=== PATIENT | female | born 1995 | race Two or more races ===

== ENCOUNTER 2017-04-17 06:05 | Inpatient (IN) | payer MEDICAID ==
[~2017-04-17] VITALS: Ht 154.9 cm; Wt 68.2 kg
[2017-04-17 06:29] VITALS: Ht 154.9 cm; Wt 68.2 kg
[2017-04-17 06:31] VITALS: BP 119/63; RESP 18
[2017-04-17] MEDS ORDERED: PRENAT PO (06:34)
[2017-04-17 07:17] LABS: ADD UMIC YES; URINE BILIRUBIN (Dip) NEGATIVE (NEGATIVE); URINE BLOOD (Dip) NEGATIVE (NEGATIVE); URINE COLOR LT. YELLOW (YELLOW); URINE GLUCOSE (Dip) NEGATIVE (NEGATIVE); URINE KETONES (Dip) NEGATIVE (NEGATIVE); URINE LEUKOCYTE ESTERASE (Dip) 1+ (NEGATIVE); URINE NITRITE (Dip) NEGATIVE (NEGATIVE); URINE TOTAL PROTEIN (Dip) NEGATIVE (NEGATIVE); URINE UROBILINOGEN (Dip) 0.2 E.U./dL (0.1-1.0)
[2017-04-17] MEDS: LACTATED RINGER'S 1,000 ML IV SCH ×4 (07:31→15:36)
--- NOTE | 2017-04-17 07:48 | RADRPT ---
PROCEDURE: OB ultrasound for biophysical profile CLINICAL INDICATION: Contractions TECHNIQUE: Multiple sonographic images of the pelvis were obtained. Transabdominal views of the g ravid uterus are available for review. The images were reviewed on a PACS workstation. COMPARISON: None FINDINGS: breathing movement = 2/2 tone = 2/2 motion = 2/2 GERALD = 0/2 GERALD = 4.4 cm Single live intrauterine with cardiac activity of 159 bpm. position is cephal ic. The placenta is fundal. IMPRESSION: 1. Single live intrauterine gestation. 2. Biophysical profile = 04/30. GERALD = 0/2 3. Oligohydramnios. GERALD = 4.4 cm. RPTAT: HH .Ana Cardozo MD, Date Time Electronically viewed and signed by .Ana Cardozo MD, on 04/17/2017 07:48 .G/
[2017-04-17 08:03] LABS: BACTERIA,URINE RARE; URINE RBCS NONE SEEN /HPF (0)
--- NOTE | 2017-04-17 08:31 | HP ---
Date/Time of Note Date/Time of Note DATE: 04/17/17 TIME: 08:30 OB - History Hx of Present Free Text/Dictation @38+wks GA with GERALD 4.4 and labor : 2 Para: 1 Care: Good Care Ultrasounds: Normal mid trimester US Obstetrical Complications: None Medical Complications: None Past Family/Social History * Past Medical, Surgical, Family and Obstetric Histories reviewed from chart. OB Admission Exam Vital Signs Vital Signs Vital Signs Date Time Temp Pulse Resp B/P Pulse Ox O2 Delivery O2 Flow Rate FiO2 04/17/17 06:31 98.5 18 119/63 Room Air Physical Exam Abdomen: WNL Extremities: Normal Cervical Dilatation: 2cm Effacement: 75% Station: -1 Membranes: Intact Heart Rate: 140's Accelerations: Accelerations Present Decelerations: No Decelerations Varibility: Moderate Contractions on Admission: < 5 Minutes Apart OB Assessment/Plan Reason for admission: observation Plan: Expectant Management PO CORTEZ M.D. April 17, 2017 08:31
--- NOTE | 2017-04-17 09:02 | TRIAGE ---
OB Triage Datetime Report Generated by CPN: 04/17/2017 09:02 Datetime: 04/17/2017 08:56 Pain Assessment Comments: PT REPORTS INCREASED PAIN Datetime: 04/17/2017 08:53 Labor Evaluation Frequency: 2-3 Duration (sec)2399: 60-120 Quality: Strong Pattern: Normal: <= 5 Contractions in 10 Minutes Resting Tone Keller: Relaxed Heart Rate FHR Baseline Rate: 145 Monitor Mode: External US Variability: Moderate 6-25 bpm Accelerations: 15X15 Decelerations: None Category: Category I Pain Assessment Pain Scale: 8 Pain Presence: Intermittent Pain Type: Contraction Pain Location: Abdomen; Back Pain Goal: 2 Datetime: 04/17/2017 07:50 Labor Evaluation Frequency: 3-5 Monitor Mode: External Duration (sec)2399: 60-80 Quality: Moderate Pattern: Normal: <= 5 Contractions in 10 Minutes Resting Tone Keller: Relaxed Heart Rate FHR Baseline Rate: 155 Monitor Mode: External US Variability: Moderate 6-25 bpm Accelerations: 15X15 Decelerations: None Category: Category I Datetime: 04/17/2017 07:22 Maternal Assessment Level of Consciousness: Fully Conscious DTR's/Clonus: DTRs 2+; No Clonus Headache: Denies Blurred Vision: No Respiratory Effort: Unlabored; Regular Rhythm; Equal Expansion Breath Sounds, Left: Clear and Equal Breath Sounds, Right: Clear and Equal Nausea/Vomiting: Denies RUQ Epigastric Pain: Denies Lower Extremities Edema: Bilateral Lower Extremities Degree: 1+ Upper Extremities Edema: None Degree: None Facial Edema: None Fall Risk Assessment History of Falling: (0) No Secondary Diagnosis: (0) No Ambulatory Aid: (0) Bedrest/Nurse Assist Gait: (0) Normal/Bedrest/Immobile Mental Status: (0) Oriented to Own Ability Datetime: 04/17/2017 07:00 Labor Evaluation Frequency: 4-5 Monitor Mode: External Duration (sec)2399: 60-90 Quality: Moderate Pattern: Normal: <= 5 Contractions in 10 Minutes Resting Tone Keller: Relaxed Heart Rate FHR Baseline Rate: 145 Monitor Mode: External US FHR Baseline Changes: No Baseline Change Variability: Minimal - Undetectable to <=5 bpm Accelerations: 15X15 Decelerations: None Category: Category II Comments: MINIMAL VARIABILITY WITH PERIODS OF MODERATE VARIABILITY AND ACCELERATIONS Datetime: 04/17/2017 06:25 EGA: 38.2 Vaginal Exam Dilatation (cms): 0.0 Effacement (%): 0 Station: -3 Exam By: Jose RN Datetime: 04/17/2017 06:20 Assessment Type: Triage Maternal Assessment Level of Consciousness: Fully Conscious DTR's/Clonus: DTRs 2+; No Clonus Headache: Denies Blurred Vision: No Respiratory Effort: Unlabored; Regular Rhythm; Equal Expansion Breath Sounds, Left: Clear and Equal Breath Sounds, Right: Clear and Equal Nausea/Vomiting: Denies RUQ Epigastric Pain: Denies Lower Extremities Edema: None Degree: None Upper Extremities Edema: None Degree: None Facial Edema: None Temperature Route: Oral Fall Risk Assessment History of Falling: (0) No Secondary Diagnosis: (0) No Ambulatory Aid: (0) Bedrest/Nurse Assist IV Therapy: (0) No Gait: (0) Normal/Bedrest/Immobile Mental Status: (0) Oriented to Own Ability Fall Score: 0 Fall Risk Score Definition: No Risk: No action required Pain Assessment Pain Scale: 8 Pain Presence: Intermittent Pain Type: Contraction Pain Location: Abdomen Pain Relief Measures: Comfort Measures Datetime: 04/17/2017 06:04 Time of Arrival: 04/17/2017 06:04 Arrived By: Wheelchair Arrived From: Emergency Dept Chief Complaint: UCs Movement: Present Contractions: Regular Contractions: Q4 Rupture of Membranes: Unsure Vaginal Bleeding: None Vaginal Discharge: Present Recent Sexual Intercouse: Denies Abdominal Trauma: Not Applicable Patient Complaints: Contractions Time Provider Notified: 04/17/2017 07:11 Provider Notified: DR. CORTEZ Initial Plan: CALL MD, EXTERNAL MONITORING, OBSERVATION, ROM+ IV HYDRATION
[2017-04-17 10:26] LABS: ADD SCAN DIFF NO
[2017-04-17 10:27] LABS: BASOPHILS % 0.3 % (0.0-2.0); EOSINOPHILS % 0.4 % (0.0-7.0); HEMOGLOBIN 13.3 g/dl (12.0-16.0); LYMPHOCYTES # 1.6 10^3/ul (0.8-2.9); LYMPHOCYTES % 21.6 % (18.0-55.0); MEAN CORPUSCULAR HEMOGLOBIN 32.3 pg (29.0-33.0); MEAN CORPUSCULAR VOLUME 92.2 fl (72.0-104.0); MEAN PLATELET VOLUME 12.1 fl (7.4-10.4); MONOCYTE # 0.5 10^3/ul (0.3-0.9); MONOCYTES % 7.1 % (0.0-13.0); NEUTROPHILS % 69.6 % (30.0-74.0); PLATELET COUNT 178 10^3/UL (140-415); RED BLOOD COUNT 4.12 10^6/ul (4.20-5.40); RED CELL DISTRIBUTION WIDTH 12.9 % (11.5-14.5); WHITE BLOOD COUNT 7.2 10^3/ul (4.8-10.8)
[2017-04-17] MEDS ORDERED: METHYLERGONOVINE 0.2 MG INJ IM PRN (10:30)
[2017-04-17] MEDS ORDERED: IBUPROFEN 600 MG TAB PO PRN (10:30)
[2017-04-17] MEDS ORDERED: BUTORPHANOL 2 MG INJ IV PRN ×2 (10:30)
[2017-04-17] MEDS ORDERED: OXYTOCIN 30 UNITS/LR 500 ML IV SCH ×2 (10:30)
[2017-04-17] MEDS ORDERED: OXYTOCIN 30 UNITS/LR 500 ML IV PRN (10:30)
[2017-04-17] MEDS ORDERED: ACETAMINOPHEN/CODEINE #3 TAB PO PRN ×3 (10:30→21:00)
[2017-04-17] MEDS ORDERED: LIDOCAINE 1% (MPF) 30 ML INJ INJ PRN (10:30)
[2017-04-17] MEDS ORDERED: CARBOPROST 250 MCG INJ IM PRN (10:30)
[2017-04-17] MEDS ORDERED: DINOPROSTONE 10 MG VAG SUPP VAG ONE (10:30)
[2017-04-17] MEDS ORDERED: MISOPROSTOL 200 MCG TAB PR PRN (10:30)
[2017-04-17 10:43] LABS: INR 0.93; PROTIME 12.5 Sec (12.2-14.2)
[2017-04-17 10:44] LABS: PARTIAL THROMBOPLASTIN TIME 24.4 Sec (25.0-35.0)
[2017-04-17] MEDS ORDERED: LACTATED RINGER'S 1,000 ML IV PRN (11:10)
[2017-04-17] MEDS ORDERED: FENTAnyl 2MCG/ML-ROPIV 0.2% 100 ML ONE (12:44)
[2017-04-17] MEDS ORDERED: NALOXONE (0.4 MG/ML) INJ IV PRN (13:00)
[2017-04-17] MEDS ORDERED: FENTAnyl 2MCG/ML-ROPIV 0.2% 100 ML BAG EPI SCH (13:00)
--- NOTE | 2017-04-17 18:04 | LDN ---
Date/Time of Note Date/Time of Note DATE: 04/17/17 TIME: 18:01 Delivery Summary Normal spontaneous vaginal delivery of a baby boy from OA position shoulders delivered without any difficulties rest of the baby's body followed placenta spontaneous expulsion inspected complete patient sustained very superficial first-degree perineal laceration repaired with 4-0 chromic catgut estimated blood loss 250 cc Weeks of Gestation 39 weeks 4 7 Placenta Delivered: Spontaneously Meconium: none Episiotomy: No Laceration repair: Superficial first-degree perineal laceration repaired with 4-0 chromic catgut Anesthesia type: Epidural Sponge & Needle done & correct: Yes All needle counts correct: Yes Any foreign bodies felt in the: No Problems: Delivery Information Sex Infant Sex: male Apgars 1 Minute: 9 5 Minute: 9 Suctioning Nose & mouth suctioned at devonte: Yes Delee suction performed: No Umbilical Cord Umbilical cord with: 3 Vessels Cord presentations: no nuchal cord Cord Blood was obtained: Yes NIKKI VILLARREAL MD April 17, 2017 18:04
[2017-04-17] MEDS: OXYTOCIN 30 UNITS/LR 500 ML IV SCH ×2 (20:45→22:17)
[2017-04-17 20:50] VITALS: BP 121/59; PULSE 86; RESP 18
[2017-04-17] MEDS ORDERED: ACETAMINOPHEN 325 MG TAB PO PRN (21:00)
[2017-04-17] MEDS ORDERED: BENZOCAINE 20% 56 ML SPRAY TOP PRN (21:00)
[2017-04-17] MEDS ORDERED: LANOLIN 7 GM TUBE TOP PRN (21:00)
[2017-04-17] MEDS ORDERED: WITCH HAZEL/GLYCERIN PAD PR PRN (21:00)
[2017-04-17] MEDS ORDERED: OXYCODONE/ASPIRIN (4.88/325) TAB PO PRN ×2 (21:00)
[2017-04-17] MEDS ORDERED: DIBUCAINE 1% 30 GM OINT PR PRN (21:00)
[2017-04-17] MEDS ORDERED: ONDANSETRON 4 MG INJ IV PRN (21:00)
[2017-04-17 21:30] VITALS: BP 110/58; PULSE 91; RESP 18
[2017-04-17] MEDS: SENNA/DOCUSATE NA (8.6MG/50MG) TAB PO SCH (21:38)
[2017-04-18 03:43] VITALS: BP 102/54; PULSE 93; RESP 18
[2017-04-18] MEDS: IBUPROFEN 600 MG TAB PO SCH ×5 (05:41→23:14)
[2017-04-18 07:29] LABS: ADD SCAN DIFF NO
[2017-04-18 07:35] VITALS: BP 119/56; PULSE 98; RESP 17
[2017-04-18 07:35] LABS: BASOPHILS % 0.5 % (0.0-2.0); EOSINOPHILS # 0.1 10^3/ul (0.0-0.5); EOSINOPHILS % 0.6 % (0.0-7.0); HEMOGLOBIN 13.4 g/dl (12.0-16.0); LYMPHOCYTES # 1.9 10^3/ul (0.8-2.9); LYMPHOCYTES % 20.9 % (18.0-55.0); MEAN CORPUSCULAR HEMOGLOBIN 32.2 pg (29.0-33.0); MEAN CORPUSCULAR HGB CONC 34.4 g/dl (32.0-37.0); MEAN CORPUSCULAR VOLUME 93.8 fl (72.0-104.0); MEAN PLATELET VOLUME 11.4 fl (7.4-10.4); MONOCYTE # 0.6 10^3/ul (0.3-0.9); MONOCYTES % 6.7 % (0.0-13.0); NEUTROPHIL # 6.3 10^3/ul (1.6-7.5); NEUTROPHILS % 70.7 % (30.0-74.0); PLATELET COUNT 170 10^3/UL (140-415); RED BLOOD COUNT 4.16 10^6/ul (4.20-5.40); RED CELL DISTRIBUTION WIDTH 12.9 % (11.5-14.5); WHITE BLOOD COUNT 8.9 10^3/ul (4.8-10.8)
[2017-04-18] MEDS: SENNA/DOCUSATE NA (8.6MG/50MG) TAB PO SCH ×2 (09:39→21:31)
[2017-04-18 12:20] VITALS: BP 105/59; PULSE 90; RESP 19
--- NOTE | 2017-04-18 15:36 | PN ---
Date/Time of Note Date/Time of Note DATE: 04/18/17 TIME: 15:35 OB Subjective Subjective Subjective day 1 Afebrile vital signs stable abdomen soft uterus firm lochia normal extremity normal ambulation encouraged NIKKI VILLARREAL MD April 18, 2017 15:36
[2017-04-18 15:54] VITALS: BP 95/48; PULSE 91; RESP 16
[2017-04-18 20:00] VITALS: BP 111/60; PULSE 72; RESP 20
[2017-04-19 03:15] VITALS: BP 109/59; PULSE 72; RESP 20
[2017-04-19] MEDS: IBUPROFEN 600 MG TAB PO SCH ×2 (05:20→12:40)
[2017-04-19 07:45] VITALS: BP 113/65; PULSE 97; RESP 16
[2017-04-19] MEDS: SENNA/DOCUSATE NA (8.6MG/50MG) TAB PO SCH (08:44)
[2017-04-19] MEDS ORDERED: MEASLES,MUMPS,RUBELLA VACCINE INJ SC* ONE (09:00)
--- NOTE | 2017-04-19 16:14 | PD.PPDC ---
[facility] Discharge Instruction Condition Patient Condition: Good Diet Diet: Resume Regular Diet Activity/Restrictions Activity: Normal Activity May Shower Restrictions: No Exercising No Lifting No Driving No Sexual Activity Nothing in the Vagina No [place] No Tampons, douche Follow-up Follow-up with Physician: 2, Week/Weeks Provider Information: Appointment at [facility] in 2 weeks for check Return to clinic for [facility] [employer] [facility] Instructions: Fever greater than 101 Chills Worsening abdominal pain Excessive Vaginal Bleeding More than 2 pads per hour Unable to tolerate diet OB Instructions: Breast Tenderness Depression Blurried Vision Headache NIKKI VILLARREAL MD April 19, 2017 16:14
--- NOTE | 2017-04-19 16:18 | DS ---
Date/Time of Note Date/Time of Note DATE: 04/19/17 TIME: 16:15 Discharge Summary Admission/Discharge Info Admit Date/Time April 17, 2017 at 08:35 Discharge Date/Time Apr 19 2017 at 1610 Final Diagnosis Post normal vaginal delivery day 2 Patient Condition: Good Procedures Normal spontaneous vaginal delivery Hx of Present Illness Term uncomplicated Hospital Course Satisfactory uneventful Home Meds Reported Medications Multivit/Min/Fol Ac/Iron/Pren* ( S*) 1 Tab Tab, 1 TAB PO DAILY, TAB 04/17/17 Follow-up Plan Appointment [facility] office in 2 weeks for post check Primary Care Provider Care Physician No Primary Time spent on discharge: < 30 minutes NIKKI VILLARREAL MD April 19, 2017 16:18
== END 2017-04-19 17:05 | disposition home or self-care (01) | DRG 775 ==
LOC: L-D 06:05 → OBT 06:05 → L-D 08:35 → PP1 20:47
PROVIDERS: ADMIT Obstetrics & Gynecology; ATTEND Obstetrics & Gynecology
PROC: 10E0XZZ Delivery of Products of Conception, External Approach (ICD-10-PCS; principal; 2017-04-17)
PROC: 0HQ9XZZ Repair Perineum Skin, External Approach (ICD-10-PCS; 2017-04-17)
DX: O70.0 First degree perineal laceration during delivery (principal); Z37.0 Single live birth; Z3A.38 38 weeks gestation of pregnancy
CPT/HCPCS: 36415; 62319; 76818; 81001; 84112; 85025; 85610; 85730; 86592; 86900; 86901; 87340; 96360; 96361; A4310; G0463; J2590; J3010; J7120